=== PATIENT | female | born 1980 | race Caucasian/White ===

== ENCOUNTER 2025-04-10 13:02 | Outpatient (CLI) | payer OTHER, SELFPAY ==
[2025-04-11 07:09] LABS: LH 4.2 mIU/mL (.)
[2025-04-11 10:08] LABS: FSH 4.8 mIU/mL (.)
[2025-04-16 22:07] LABS: Estradiol, Sensitive 54.1 pg/mL (.)
== END 2025-04-10 13:03 | disposition home or self-care (01) ==
PROVIDERS: PCP Internal Medicine; Visit Provider Obstetrics & Gynecology
DX: N95.1 Menopausal and female climacteric states (principal)
CPT/HCPCS: 82670; 83001; 83002; 84144